=== PATIENT | female | born 1990 | race Caucasian/White ===

== ENCOUNTER 2021-02-22 10:25 | Outpatient (CLI) | payer BC ==
[~2021-02-22 10:25] MED LIST: FERROUS SULFAT325 MG PO; NORCO 5-325 TA1 EACH PO; PRENATAL TABLE1 EAC1 PO
[2021-02-22 12:03] LABS: HEMOGLOBIN 13.6 gm/dl (12.3-15.3); RED BLOOD COUNT 4.71 M/UL (4.00-5.10); WHITE BLOOD COUNT 3.9 K/UL (4.5-11.0)
[2021-02-22] MEDS ORDERED: ZAFEMY 150-351 EACH TOP (12:06)
== END 2021-02-22 13:22 | disposition home or self-care (01) ==
LOC: OPSV2 10:25
PROVIDERS: Obstetrics & Gynecology
DX: Z01.812 Encounter for preprocedural laboratory examination (principal)
CPT/HCPCS: 81001; 85025

== ENCOUNTER 2021-02-25 06:36 | Day surgery (SDC) | payer BC ==
[~2021-02-25] VITALS: Ht 160 cm; Wt 53.1 kg
[~2021-02-25 06:36] MED LIST changes: +ZAFEMY 150-351 EACH TOP
[2021-02-25] MEDS ORDERED: IBUPROFEN600 MG PO (11:56)
[2021-02-25] MEDS ORDERED: DOCUSATE SODIU250 MG PO (11:56)
[2021-02-25] MEDS ORDERED: HYDROCODONE-AC1 EACH PO ×2 (11:56→11:58)
[2021-02-25] MEDS ORDERED: DITROPAN 5 MG TA5 MG PO (11:56)
--- NOTE | 2021-02-26 08:10 | NUR ---
RN NOTIFIED DR. CORDERO OF PATIENT'S BILATERAL LOWER BACK. RN NOTED SOME SWELLING AND PATIENT VERBALIZED PAIN WAS STILL PRESENT ALTHOUGH DECREASED. MD ALSO MADE AWARE THAT PATIENT HAD NOT VOIDED AND CATHETER WAS REMOVED EARLIER THIS AM BY MICHELLE GRIFFITHS. MD ASKED RN IF PATIENT HAD AMBULATED THIS AM, RN STATED SHE HAD. MD STATED THAT PATIENT COULD BE DISCHARGED ONCE SHE URINATED.
== END 2021-02-26 14:43 | disposition home or self-care (01) ==
LOC: OR 06:36 → M/S 18:12 → OR 02-26 14:43
DX: N81.3 Complete uterovaginal prolapse (principal); K21.9 Gastro-esophageal reflux disease without esophagitis; Z88.6 Allergy status to analgesic agent
CPT/HCPCS: 84703; C1763; C1769; J0690; J1100; J1170; J1885; J2001; J2250; J2270; J2405; J2550; J2704; J2710; J3010; J7050; J7120